=== PATIENT | male | born 1960 | race Caucasian/White ===

== ENCOUNTER 2023-09-19 09:10 | Observation (INO) | payer OTHER ==
[2023-09-19] MEDS ORDERED: METOCLOPRAMIDE HCL INJECTION 10 MG/2 ML VIAL IVPUSH ONE (09:34)
[2023-09-19] MEDS ORDERED: SODIUM CHLORIDE 1,000 ML IV STA (09:34)
[2023-09-19] MEDS ORDERED: METOCLOPRAMIDE HCL INJECTION 10 MG/2 ML VIAL ONE (09:42)
[2023-09-19 09:48] LABS: VENOUS BASE EXCESS 3.2 mmol/L (-2-2); VENOUS O2 SATURATION 28.7 % (70-80); VENOUS PCO2 35.8 mmHg (38-52); VENOUS PH 7.485 (7.310-7.410)
[2023-09-19 09:49] LABS: BASO % 0.4 % (0-2.0); EOS % 1.2 % (0-4.5); HEMATOCRIT 41.7 % (35.4-49); LYMPH % 25.9 % (8-40); MCHC 33.6 g/dl (32.0-35.9); MEAN CELL VOLUME 89.4 fl (80-96); MEAN PLT VOLUME 8.6 fl (7.5-11.1); MONO % 12.2 % (3.8-10.2); NEUT % 60.3 % (42.8-82.8); PLATELET COUNT 170 10^3/uL (134-434); RBC 4.66 M/mm3 (4.00-5.60); RDW 13.6 % (11.9-15.9)
[2023-09-19 09:56] LABS: INR 1.1 (0.83-1.09); PROTHROMBIN TIME (PATIENT) 12.8 SEC (9.7-13.0)
[2023-09-19 09:59] LABS: ACTIVATED PTT 28.8 SECONDS (25.2-36.5)
[2023-09-19] MEDS ORDERED: MECLIZINE HCL 25 MG TABLET (FP) PO ONE (10:06)
[2023-09-19 10:10] LABS: POTASSIUM 3.6 mmol/L (3.5-5.1)
[2023-09-19 10:12] LABS: CALCIUM 8.9 mg/dL (8.5-10.1)
[2023-09-19 10:13] LABS: ALBUMIN 3.7 g/dl (3.4-5.0); BLOOD UREA NITROGEN 13.1 mg/dL (7-18); MAGNESIUM 2.2 mg/dL (1.8-2.4)
[2023-09-19 10:17] LABS: BILIRUBIN,TOTAL 0.4 mg/dL (0.2-1); CREATININE 0.8 mg/dL (0.55-1.3); TOT PROT 7.4 g/dl (6.4-8.2)
[2023-09-19] MEDS ORDERED: MECLIZINE HCL 25 MG TABLET (FP) ONE (11:02)
[2023-09-19] MEDS ORDERED: SODIUM CHLORIDE 0.9% 500 ML INFUS.BAG IV ONE (11:24)
[2023-09-19] MEDS ORDERED: dilTIAZem HCL 30 MG TABLET PO SCH (14:30)
[2023-09-19] MEDS ORDERED: dilTIAZem HCL 30 MG TABLET ONE (14:38)
[2023-09-19] MEDS: INSULIN SLIDING SCALE (NOVOLOG) 1 VIAL SQ SCH (16:52)
[2023-09-19] MEDS ORDERED: dilTIAZem HCL 30 MG TABLET PO ONE (18:52)
[2023-09-19] MEDS ORDERED: APIXABAN 5 MG TABLET ONE (21:59)
[2023-09-19] MEDS ORDERED: INSULIN (LEVEMIR) 100 UNITS/ML UNITS SQ SCH (22:00)
[2023-09-19] MEDS ORDERED: INSULIN DEGLUDEC 100 UNIT/ML SQ SCH (22:00)
[2023-09-19] MEDS ORDERED: ROSUVASTATIN CA 20 MG TABLET ONE (22:00)
[2023-09-19] MEDS ORDERED: dilTIAZem HCL 60 MG TABLET ONE (22:00)
[2023-09-19] MEDS: ROSUVASTATIN CA 20 MG TABLET PO SCH (22:21)
[2023-09-19] MEDS: dilTIAZem HCL 60 MG TABLET PO SCH (22:21)
[2023-09-19] MEDS: APIXABAN 5 MG TABLET PO SCH (22:21)
[2023-09-20] MEDS ORDERED: dilTIAZem HCL 60 MG TABLET ONE (06:45)
[2023-09-20] MEDS: dilTIAZem HCL 60 MG TABLET PO SCH ×4 (06:46→21:23)
[2023-09-20 06:58] LABS: BASO % 0.5 % (0-2.0); EOS % 0.9 % (0-4.5); HEMATOCRIT 39.2 % (35.4-49); LYMPH % 35.1 % (8-40); MCH 29.9 pg (25.7-33.7); MCHC 33.1 g/dl (32.0-35.9); MEAN CELL VOLUME 90.3 fl (80-96); MEAN PLT VOLUME 9.1 fl (7.5-11.1); MONO % 16.1 % (3.8-10.2); NEUT % 47.4 % (42.8-82.8); PLATELET COUNT 160 10^3/uL (134-434); RBC 4.34 M/mm3 (4.00-5.60); RDW 13.2 % (11.9-15.9); WHITE BLOOD COUNT 7.1 K/mm3 (4.0-10.0)
[2023-09-20] MEDS ORDERED: LEVOTHYROXINE NA 100 MCG TABLET (FP) ONE (07:05)
[2023-09-20] MEDS: LEVOTHYROXINE NA 100 MCG TABLET (FP) PO SCH (07:06)
[2023-09-20 07:08] LABS: POTASSIUM 4.2 mmol/L (3.5-5.1)
[2023-09-20 07:11] LABS: CALCIUM 7.9 mg/dL (8.5-10.1)
[2023-09-20 07:13] LABS: BLOOD UREA NITROGEN 14.4 mg/dL (7-18)
[2023-09-20 07:15] LABS: CREATININE 0.7 mg/dL (0.55-1.3)
[2023-09-20] MEDS: INSULIN SLIDING SCALE (NOVOLOG) 1 VIAL SQ SCH ×3 (08:13→17:13)
[2023-09-20] MEDS ORDERED: PATIENT'S OWN MEDICATION (NON-FORMULARY) (Amlodipine Bes/Olmesartan Med [Azor 10-40 Mg Tab PO SCH (10:00)
[2023-09-20] MEDS ORDERED: LOSARTAN POTASSIUM 50 MG TABLET ONE (10:23)
[2023-09-20] MEDS ORDERED: APIXABAN 5 MG TABLET ONE (10:23)
[2023-09-20] MEDS: INSULIN (LEVEMIR) 100 UNITS/ML UNITS SQ SCH (11:05)
[2023-09-20] MEDS: APIXABAN 5 MG TABLET PO SCH ×2 (11:05→21:23)
[2023-09-20] MEDS: LOSARTAN POTASSIUM 50 MG TABLET PO SCH (11:05)
[2023-09-20] MEDS: DUTASTERIDE 0.5 MG CAP (FP) PO SCH (11:05)
[2023-09-20] MEDS ORDERED: METOPROLOL TARTRATE 25 MG TABLET (FP) PO PRN (20:21)
[2023-09-20] MEDS ORDERED: METOPROLOL TARTRATE 5 MG/5 ML VIAL IVPUSH PRN (20:28)
[2023-09-20] MEDS: ROSUVASTATIN CA 20 MG TABLET PO SCH (21:23)
[2023-09-21] MEDS: LEVOTHYROXINE NA 100 MCG TABLET (FP) PO SCH (06:29)
[2023-09-21 07:20] LABS: HEMATOCRIT 39.5 % (35.4-49); HEMOGLOBIN 13.3 GM/dL (11.7-16.9); MCH 30.4 pg (25.7-33.7); MCHC 33.6 g/dl (32.0-35.9); MEAN CELL VOLUME 90.3 fl (80-96); MEAN PLT VOLUME 8.4 fl (7.5-11.1); PLATELET COUNT 148 10^3/uL (134-434); RBC 4.38 M/mm3 (4.00-5.60); RDW 13.4 % (11.9-15.9); WHITE BLOOD COUNT 7.5 K/mm3 (4.0-10.0)
[2023-09-21 07:27] LABS: BLOOD UREA NITROGEN 14.3 mg/dL (7-18); CALCIUM 7.9 mg/dL (8.5-10.1)
[2023-09-21 07:30] LABS: CREATININE 0.7 mg/dL (0.55-1.3)
[2023-09-21] MEDS ORDERED: MECLIZINE HCL 12.5 MG TABLET PO PRN (09:54)
[2023-09-21] MEDS: APIXABAN 5 MG TABLET PO SCH (09:59)
[2023-09-21] MEDS: LOSARTAN POTASSIUM 50 MG TABLET PO SCH (09:59)
[2023-09-21] MEDS: DUTASTERIDE 0.5 MG CAP (FP) PO SCH (09:59)
[2023-09-21] MEDS: INSULIN (LEVEMIR) 100 UNITS/ML UNITS SQ SCH (10:01)
[2023-09-21] MEDS: INSULIN SLIDING SCALE (NOVOLOG) 1 VIAL SQ SCH ×2 (11:14→11:18)
[2023-09-21] MEDS ORDERED: INSULIN (NOVOLOG) ASPART 100 UNITS/ML 10ML VIAL ONE (11:15)
[2023-09-21 13:04] VITALS: BMI 17.9
[2023-09-21 14:05] VITALS: BP 130/62; PULSE 83; RESP 20; TEMP 97.5
== END 2023-09-21 14:06 | disposition home or self-care (01) ==
LOC: JER 09:10 → INTOOBSV 09:46 → JERBED 09:46 → J4W 09-20 16:38
PROVIDERS: ADMIT Internal Medicine; ATTEND Internal Medicine
PROC: 3E013VG Introduction of Insulin into Subcutaneous Tissue, Percutaneous Approach (ICD-10-PCS; principal; 2023-09-19)
PROC: 3E033GC Introduction of Other Therapeutic Substance into Peripheral Vein, Percutaneous Approach (ICD-10-PCS; 2023-09-19)
DX: I48.91 Unspecified atrial fibrillation (principal); I10 Essential (primary) hypertension; E11.9 Type 2 diabetes mellitus without complications; G47.33 Obstructive sleep apnea (adult) (pediatric); N40.0 Benign prostatic hyperplasia without lower urinary tract symptoms; E03.9 Hypothyroidism, unspecified; R42 Dizziness and giddiness; E78.5 Hyperlipidemia, unspecified; Z99.81 Dependence on supplemental oxygen; L40.50 Arthropathic psoriasis, unspecified; L40.9 Psoriasis, unspecified
CPT/HCPCS: 0241U-QW; 36415; 70450-TC; 71045-TC-FY; 80048; 80053; 82803; 82962; 83735; 84439; 84443; 84484; 85025; 85027; 85610; 85730; 93005; 93010; 93306-TC; 94010; 94660; 97116-GP; 97161-GP; 99285-25; G0378